=== PATIENT | male | born 1995 | race Two or more races ===

== ENCOUNTER 2020-05-02 21:47 | Emergency (ER) | payer SELFPAY ==
--- NOTE | 2020-05-02 22:00 | EDM.PDOC ---
ED HPI GENERAL MEDICAL PROBLEM - General Chief Complaint: Upper Extremity Injury/Pain Stated Complaint: hand injury Time Seen by Provider: 05/02/20 21:51 Source of Information: Reports: Patient History Limitations: Reports: No Limitations - History of Present Illness INITIAL COMMENTS - FREE TEXT/NARRATIVE: Patient is a 24-year-old male who presents to the emergency department with pain to his right hand. States he fell approximately 1 month ago and has been icing and taking ibuprofen, however the pain still is there. He is able to use the hand, however he makes a tight fist he experiences pain to the dorsal medial aspect of his hand into his wrist. Right Wrist Pain Score (Numeric/FACES): 5 - Related Data Allergies Allergy/AdvReac Type Severity Reaction Status Date / Time No Known Allergies Allergy Verified 05/02/20 22:01 Home Meds: Home Meds Naproxen [Naprosyn] 500 mg PO Q12HR #10 tab 05/02/20 [Rx] Past Medical History - Past Health History Medical/Surgical History: Denies Medical/Surgical History HEENT History: Reports: None Cardiovascular History: Reports: None Respiratory History: Reports: None Gastrointestinal History: Reports: None Genitourinary History: Reports: None Musculoskeletal History: Reports: None Neurological History: Reports: None Psychiatric History: Reports: None Endocrine/Metabolic History: Reports: None Hematologic History: Reports: None Immunologic History: Reports: None Oncologic (Cancer) History: Reports: None Dermatologic History: Reports: None - Infectious Disease History Infectious Disease History: Reports: Chicken Pox, Other (See Below) Other Infectious Disease History: childhood - Past Surgical History Head Surgeries/Procedures: Reports: None HEENT Surgical History: Reports: None Cardiovascular Surgical History: Reports: None Respiratory Surgical History: Reports: None GI Surgical History: Reports: None Male Surgical History: Reports: None Endocrine Surgical History: Reports: None Neurological Surgical History: Reports: None Musculoskeletal Surgical History: Reports: Other (See Below) Other Musculoskeletal Surgeries/Procedures:: tibia surgery Oncologic Surgical History: Reports: None Dermatological Surgical History: Reports: None Social & Family History - Family History Family Medical History: Noncontributory - Caffeine Use Caffeine Use: Reports: Coffee, Energy Drinks, Soda Review of Systems - Review of Systems Review Of Systems: Comprehensive ROS is negative, except as noted in HPI. ED EXAM, GENERAL - Physical Exam Exam: See Below Exam Limited By: No Limitations General Appearance: WD/WN, No Apparent Distress Respiratory/Chest: No Respiratory Distress, Lungs Clear, Normal Breath Sounds, No Accessory Muscle Use, Chest Non-Tender Cardiovascular: Normal Peripheral Pulses, Regular Rate, Rhythm, No Edema, No Gallop, No JVD, No Murmur, No Rub Extremities: Normal Inspection, Normal Range of Motion, Non-Tender, Normal Capillary Refill, No Pedal Edema Neurological: Alert, Oriented, CN II-XII Intact, Normal Cognition, Normal Gait, Normal Reflexes, No Motor/Sensory Deficits Psychiatric: Normal Affect, Normal Mood Skin Exam: Warm, Dry, Intact, Normal Color, No Rash Course - Vital Signs Last Recorded V/S: Last Vital Signs Temp 98.5 F 05/02/20 21:59 Pulse 82 05/02/20 21:59 Resp 16 05/02/20 21:59 BP 138/90 05/02/20 21:59 Pulse Ox 100 05/02/20 21:59 - Orders/Labs/Meds Orders: Active Orders 24 hr Category Date Time Status Hand Comp Min 3V Rt [CR] Stat Exams 05/02/20 21:59 Taken Ketorolac [Toradol] Med 05/02/20 22:32 Once 60 mg IM ONETIME ONE DME for Discharge [COMM] Routine Oth 05/02/20 22:32 Ordered - Re-Assessments/Exams Free Text/Narrative Re-Assessment/Exam: 05/02/20 22:32 X-ray of the hand was negative for any acute fractures. We will treat the patient for tendinitis. He will get a shot of Toradol while here and then a prescription for Naprosyn. Will provide him with a Velcro wrist immobilizer. Discharge instructions as documented. Departure - Departure Time of Disposition: 22:33 Disposition: Home, Self-Care 01 Condition: Good Clinical Impression: Tendinitis - Discharge Information *PRESCRIPTION DRUG MONITORING PROGRAM REVIEWED*: No *COPY OF PRESCRIPTION DRUG MONITORING REPORT IN PATIENT MYRANDA: No Prescriptions: Naproxen [Naprosyn] 500 mg PO Q12HR #10 tab Instructions: Tendinitis, [id number] Forms: ED Department Discharge Additional Instructions: You were seen in the emergency department today for left hand and wrist pain over the last month. X-rays were done and were negative for any acute fractures. As we discussed, it is likely that you are suffering from a tendinitis which is an inflammation of the tendon. Treatment for this is anti- inflammatories. He received an injection of Toradol in the emergency department. A prescription for Naprosyn has been sent to [facility]. Take this medication as prescribed. You have also been provided with a Velcro wrist immobilizer. Wear that consistently for at least the next week to allow the tendon time to rest and decrease inflammation. If this fails to improve your symptoms, I would recommend that you follow-up in the clinic. Return to the ER as needed. Sepsis Event Note (ED) - Focused Exam Vital Signs: Vital Signs Temp Pulse Resp BP Pulse Ox 05/02/20 21:59 98.5 F 82 16 138/90 100 - My Orders Last 24 Hours: My Active Orders 05/02/20 21:59 Hand Comp Min 3V Rt [CR] Stat 05/02/20 22:32 Ketorolac [Toradol] 60 mg IM ONETIME ONE DME for Discharge [COMM] Routine - Assessment/Plan Last 24 Hours: My Active Orders 05/02/20 21:59 Hand Comp Min 3V Rt [CR] Stat 05/02/20 22:32 Ketorolac [Toradol] 60 mg IM ONETIME ONE DME for Discharge [COMM] Routine
[2020-05-02 22:01] VITALS: BP 138/90; PULSE 82
[2020-05-02] MEDS ORDERED: Ketorolac 60 MG/2 ML SDV IM ONE (22:32)
--- NOTE | 2020-05-03 16:46 | CR ---
Right hand: 4 views the right hand were obtained. Comparison: No prior hand exam. Joint spaces are preserved. No fracture, dislocation or other bony abnormality is appreciated. Impression: 1. No abnormality is identified on right hand exam. Diagnostic code #1 This report was dictated in MDT
== END 2020-05-02 22:44 | disposition home or self-care (01) ==
LOC: JD.ED 21:47
DX: M77.9 Enthesopathy, unspecified (principal)
CPT/HCPCS: 73130; 96372; 99283; J1885